=== PATIENT | female | born 1935 | race Asian ===

== ENCOUNTER 2018-01-27 22:39 | Emergency (ER) | payer MEDICARE, OTHER ==
[~2018-01-27] VITALS: Ht 154.9 cm; Wt 63.6 kg
[2018-01-27] MEDS ORDERED: FISH1CAP63 PO (22:56)
[2018-01-27] MEDS ORDERED: LORA10TA7 PO (22:56)
[2018-01-27] MEDS ORDERED: ALBU8.5H8 IH (22:56)
[2018-01-27] MEDS ORDERED: AMLO-511 PO (22:56)
[2018-01-27] MEDS ORDERED: LOSA25TA21 PO (22:56)
[2018-01-27] MEDS ORDERED: OMEP20 PO (22:56)
[2018-01-27] MEDS ORDERED: QUET25TA PO (22:56)
[2018-01-27] MEDS ORDERED: MEMA10TA11 PO (22:56)
[2018-01-27] MEDS ORDERED: ATOR10TA84 PO (22:56)
[2018-01-27] MEDS ORDERED: ACET-2123 PO ×2 (22:56)
[2018-01-27] MEDS ORDERED: RANO500T3 PO (22:56)
[2018-01-27] MEDS ORDERED: ASPI-556 PO (22:56)
[2018-01-27] MEDS ORDERED: FLUT16H NASAL (22:56)
[2018-01-27] MEDS ORDERED: CALC1TAB97 PO (22:56)
[2018-01-27] MEDS ORDERED: ERGO500014 PO (22:56)
[2018-01-28] MEDS ORDERED: TraMADol HCL 50 MG TABLET PO ONE (00:15)
[2018-01-28 00:28] VITALS: BP 130/65
== END 2018-01-28 01:37 | disposition home or self-care (01) ==
LOC: EMS 22:40
DX: S00.03XA Contusion of scalp, initial encounter (principal); F03.90 Unspecified dementia, unspecified severity, without behavioral disturbance, psychotic disturbance, mood disturbance, and anxiety; I10 Essential (primary) hypertension; E78.00 Pure hypercholesterolemia, unspecified; K21.9 Gastro-esophageal reflux disease without esophagitis; W18.39XA Other fall on same level, initial encounter; Y93.89 Activity, other specified; Y92.89 Other specified places as the place of occurrence of the external cause; Y99.8 Other external cause status
CPT/HCPCS: 70450; 72125; 72128; 99284

== ENCOUNTER 2018-02-06 22:27 | Emergency (ER) | payer MEDICARE, OTHER ==
[~2018-02-06] VITALS: Ht 154.9 cm; Wt 63.1 kg
[~2018-02-06 22:27] MED LIST: ACET-2123 PO; ALBU8.5H8 IH; AMLO-511 PO; ASPI-556 PO; ATOR10TA84 PO; CALC1TAB97 PO; ERGO500014 PO; FISH1CAP63 PO; FLUT16H NASAL; LORA10TA7 PO; LOSA25TA21 PO; MEMA10TA11 PO; OMEP20 PO; QUET25TA PO; RANO500T3 PO
[2018-02-06 23:33] LABS: BASOPHILS % (AUTO) 0.8 % (0.0-2.0); EOSINOPHILS % (AUTO) 3.1 % (1.0-6.0); HEMATOCRIT 33.5 % (36-46); HEMOGLOBIN 11.7 g/dL (12.0-16.0); LYMPHOCYTES # (AUTO) 1.6 K/uL (1.0-4.8); LYMPHOCYTES % (AUTO) 24.2 % (22.0-44.0); MEAN CORPUSCULAR HEMOGLOBIN 33.9 pg (26.0-34.0); MEAN CORPUSCULAR HGB CONC 34.9 G/dL (31.0-37.0); MEAN CORPUSCULAR VOLUME 97 fL (80-100); MONOCYTES # (AUTO) 0.7 K/uL (0.1-1.0); MONOCYTES % (AUTO) 9.9 % (2.0-9.0); NEUTROPHILS # (AUTO) 4.2 K/uL (1.8-7.7); PLATELET COUNT (AUTO) 279 K/uL (150-450); RED BLOOD CELL COUNT(AUTO) 3.45 MIL/uL (4.00-5.20); RED CELL DISTRIBUTION WIDTH 12.9 % (11.5-14.5)
[2018-02-06 23:43] LABS: APPEARANCE,URINE CLEAR (CLEAR); BILIRUBIN,URINE NEGATIVE (NEGATIVE); GLUCOSE, URINE (UA) NEGATIVE (NEGATIVE); KETONES,URINE NEGATIVE (NEGATIVE); LEUKOCYTE ESTERASE ,URINE NEGATIVE (NEGATIVE); NITRATE,URINE NEGATIVE (NEGATIVE); OCCULT BLOOD,URINE NEGATIVE (NEGATIVE); PROTEIN,URINE NEGATIVE (NEGATIVE); UROBILINOGEN,URINE 0.2 mg/dL (<=1.0)
[2018-02-06 23:44] LABS: AMPHET/METH SCREEN,URINE NEGATIVE (NEGATIVE); BARBITURATE SCREEN, URINE NEGATIVE (NEGATIVE); BENZODIAZEPINES SCREEN,URINE NEGATIVE (NEGATIVE); CANNABINOID SCREEN,URINE NEGATIVE (NEGATIVE); COCAINE SCREEN,URINE NEGATIVE (NEGATIVE); METHADONE SCREEN, URINE NEGATIVE (NEGATIVE); OPIATE SCREEN,URINE NEGATIVE (NEGATIVE)
[2018-02-06 23:45] LABS: PHENCYCLIDINE SCREEN,URINE NEGATIVE (NEGATIVE)
[2018-02-06 23:45] LABS: ANION GAP 10 mmol/L (8-16); CALCIUM, TOTAL 8.7 mg/dL (8.8-10.5); CARBON DIOXIDE 26 mmol/L (22-29); CHLORIDE 102 mmol/L (98-107); CREATININE 0.89 mg/dL (0.60-1.30); GLOMERULAR FILTR. RATE CALC 60 mL/min (>60); GLUCOSE,RANDOM 118 mg/dL (70-110); POTASSIUM 4.1 mmol/L (3.5-5.1); SODIUM SERUM 138 mmol/L (136-145); UREA NITROGEN, BLOOD 20 mg/dL (7-18)
[2018-02-06 23:51] LABS: ALANINE AMINOTRANSFERASE 36 U/L (12-78); ALBUMIN 4.2 g/dL (3.4-5.0); ALKALINE PHOSPHATASE 86 U/L (46-116); ASPARTATE AMINOTRANSFERASE 25 U/L (15-37); BILIRUBIN,TOTAL 0.5 mg/dL (0.1-1.0); TOTAL PROTEIN, SERUM 8.4 g/dL (6.4-8.2)
[2018-02-07 05:00] VITALS: BP 138/72
== END 2018-02-07 05:30 | disposition home or self-care (01) ==
LOC: EMS 22:27
DX: G30.9 Alzheimer's disease, unspecified (principal); F02.81 Dementia in other diseases classified elsewhere, unspecified severity, with behavioral disturbance; I10 Essential (primary) hypertension; Z79.899 Other long term (current) drug therapy; Z79.82 Long term (current) use of aspirin
CPT/HCPCS: 36415; 80053; 80307; 81003; 85025; 99284; G0480